=== PATIENT | female | born 1965 | race African-American/Black ===

== ENCOUNTER 2017-07-18 00:55 | Emergency (ER) | payer MEDICAID ==
[~2017-07-18] VITALS: Ht 160 cm; Wt 54.4 kg
--- NOTE | ~2017-07-18 | EKG ---
[facility] [place] [address] ELECTROCARDIOGRAM REPORT Name: DANIELLE VARGHESE Room #: [facility]#: [id number] Admission: 07/18/17 Attend Phys: Discharge: 07/18/17 Date of : 61 Report #: [id number] THIS REPORT FOR: //name// [facility] ED Test Date: 2017-07-18 Test Time: 01:06:52 Pat Name: DANIELLE VARGHESE Department: Room: Gender: F Tourist Adviser: [place] : 1965 Requested By: Werner Whaley Order Number: [id number] MD: Maikel Wright Measurements Intervals Emblem Rate: 88 P: 80 DC: 177 QRS: -75 QRSD: 105 T: 112 QT: 414 QTc: 501 Interpretive Statements Sinus rhythm Probable left atrial enlargement Inferior myocardial infarction indeterminate age Anterior myocardial infarction of indeterminate age Abnormal T, consider ischemia, lateral leads Prolonged QT interval No previous ECG available for comparison Electronically Signed On 07-18-2017 7:26:09 CDT by Maikel Wright [email or web address] <ELECTRONICALLY SIGNED> By: Maikel Wright MD, [facility] 07/18/17 0726 5 5 Maikel Wright MD, [facility] /EPI
[2017-07-18] MEDS ORDERED: OXYCONTIN30 MG PO (01:10)
[2017-07-18] MEDS ORDERED: LASIX 20 MG TAB20 MG PO (01:11)
[2017-07-18] MEDS ORDERED: ASPIR 8181 MG PO (01:11)
[2017-07-18] MEDS ORDERED: PROTONIX40 M1 PO (01:12)
[2017-07-18] MEDS ORDERED: CARVEDILOL12.5 MG PO (01:12)
[2017-07-18 01:38] LABS: ABSOLUTE NEUTROPHILS 3.8 thou/uL (1.4-8.2); BASOPHILS 1.4 % (0.0-2.0); EOSINOPHILS 1.7 % (0.0-3.0); HEMATOCRIT 26.3 % (37.0-47.0); HEMOGLOBIN 8.6 gm/dL (12.0-15.0); LYMPHOCYTES 24.6 % (24.0-44.0); MCH 28.4 pg (26.0-34.0); MCHC 32.7 g/dL (28.0-37.0); MCV 86.8 fL (80.0-100.0); MONOCYTES 7.7 % (1.0-8.0); PLATELET COUNT 215 thou/uL (150-400); POLYS 64.6 % (36.0-66.0); RBC 3.04 mil/uL (4.20-5.00); RDW 17.8 % (10.5-14.5); WBC 5.9 thou/uL (4.0-11.0)
[2017-07-18 01:47] LABS: CALCIUM 9.1 mg/dL (8.5-10.1); POTASSIUM 4.7 mmol/L (3.5-5.1)
[2017-07-18 01:50] LABS: MANUAL DIFF NO
[2017-07-18 01:56] LABS: TROPONIN-I 0.07 ng/mL (<0.04-0.07)
[2017-07-18 03:32] VITALS: BP 147/77
== END 2017-07-18 03:37 | disposition home or self-care (01) ==
LOC: ER 00:55
PROVIDERS: Emergency Medicine
DX: R06.02 Shortness of breath (principal); I12.9 Hypertensive chronic kidney disease with stage 1 through stage 4 chronic kidney disease, or unspecified chronic kidney disease; E11.22 Type 2 diabetes mellitus with diabetic chronic kidney disease; N18.9 Chronic kidney disease, unspecified; I25.10 Atherosclerotic heart disease of native coronary artery without angina pectoris; J44.9 Chronic obstructive pulmonary disease, unspecified; F17.210 Nicotine dependence, cigarettes, uncomplicated; Z95.5 Presence of coronary angioplasty implant and graft; Z99.2 Dependence on renal dialysis; Z88.5 Allergy status to narcotic agent